=== PATIENT | female | born 1980 | race African-American/Black ===

== ENCOUNTER 2017-01-01 20:05 | Emergency (ER) | payer OTHER ==
[~2017-01-01] VITALS: Ht 162.6 cm; Wt 61.2 kg
[~2017-01-01 20:05] MED LIST: FLONASE120 SPRAY/ NAS; GABAPENTIN300 MG PO; MORPHINE SULFAT30 M5 PO; OXY IR5 MG PO; ROBAXIN 500MG500 MG PO; VALTREX1 GM PO; ZITHROMAX Z-PA250 M1 PO; ZOVIRAX800 MG PO
[2017-01-01 20:38] VITALS: BP 127/79
[2017-01-01] MEDS ORDERED: PERCOCET 5-3251 EACH PO (20:50)
[2017-01-01] MEDS ORDERED: AMOXICILLIN500 M3 PO (20:50)
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
== END 2017-01-01 21:02 ==
LOC: ERH 20:05
DX: K04.7 Periapical abscess without sinus (principal)

== ENCOUNTER 2017-01-11 11:06 | Emergency (ER) | payer OTHER ==
[~2017-01-11] VITALS: Ht 162.6 cm; Wt 61.2 kg
[~2017-01-11 11:06] MED LIST changes: +AMOXICILLIN500 M3 PO; +PERCOCET 5-3251 EACH PO
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
[2017-01-11 14:05] LABS: ABSOLUTE BASOPHIL COUNT 0 /CUMM (0.0-0.2); ABSOLUTE EOSINOPHIL COUNT 0.1 /CUMM (0.0-0.7); ABSOLUTE GRANULOCYTE CT 3.1 /CUMM (1.4-6.5); ABSOLUTE LYMPH COUNT 2.9 /CUMM (1.2-3.4); ABSOLUTE MONOCYTE COUNT 0.4 /CUMM (0.10-0.60); BASOPHIL % 0.4 % (0.0-2.0); EOSINOPHIL % 0.8 % (0-5); GRANULOCYTE % 47.4 % (42.2-75.2); HEMATOCRIT 32.6 % (37-47); MEAN CORPUSCULAR HGB CONC 32.5 G/DL (33.0-37.0); MEAN CORPUSCULAR VOLUME 95.4 FL (81.0-99.0); MEAN PLATELET VOLUME 7.7 FL (7.4-10.4); PLATELET COUNT 280 /CUMM (130-400); RBC DISTRIBUTION WIDTH 13.7 % (11.5-14.5); RED BLOOD CELL CT 3.41 /CUMM (4.20-5.40); WHITE BLOOD CELL COUNT 6.5 /CUMM (4.8-10.8)
--- NOTE | 2017-01-11 16:08 | CT SCAN REPORT ---
EXAMINATION: CT FACE/SINUS WITH IV CONTRAST CLINICAL INFORMATION: 36-year-old female with right-sided nostril and gum discharge, pressure sensation and fever. Evaluate for abscess. COMPARISON: None TECHNIQUE: Multidetector CT imaging examination of the facial bones was obtained with intravenous administration of 94 mL of Optiray 320 nonionic contrast material. No contrast reaction reported. Axial images are presented at 1.25 mm and 2.5 mm slice thickness. Coronal and sagittal reformatted images were generated and reviewed. DLP: 695 mGy-cm FINDINGS: There is periapical lucency around the root of the right maxillary central incisor with focal resorption of overlying anterior cortical bone. Within the soft tissues overlying the adjacent maxilla, there is a small, 0.7 x 0.8 cm peripherally enhancing abscess; this is located at the base of the right nostril. There is minimal mucosal thickening of the inferior right maxillary sinuses. Otherwise, the ethmoid, maxillary and sphenoid sinuses are clear. The ostiomeatal units are patent. There is developmental lack of pneumatization of the frontal sinuses. The nasal cavity and nasopharynx are unremarkable. The orbital rims and jo, including orbital floors and lamina papyracea, are intact. The globes, extraocular muscles and retrobulbar fat planes are normal. The mandible, temporomandibular joints, zygomatic arches, pterygoid plates and nasal bones are normal. Skull base is intact and the mastoid air cells and middle ear cavities are clear. The visualized intracranial structures are normal. No pathologic sized lymph nodes within the visualized neck. There is a 1.2 cm mixed cystic-solid nodule within the right thyroid lobe. A 0.8 cm nodule is present within the right lobe on the neck CT of 09/26/2012. IMPRESSION: 1. 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 2. 1.2 cm mixed cystic and solid nodule in the right thyroid lobe.
[2017-01-11 16:34] VITALS: BP 109/59
[2017-01-11] MEDS ORDERED: MEDROL4 M2 PO (16:35)
[2017-01-11] MEDS ORDERED: DOXYCYCLINE HY100 M2 PO (16:35)
== END 2017-01-11 16:45 ==
LOC: ERH 11:06
PROVIDERS: Physician Assistant Medical
DX: J32.9 Chronic sinusitis, unspecified (principal); K04.7 Periapical abscess without sinus; E04.1 Nontoxic single thyroid nodule; Z72.0 Tobacco use
CPT/HCPCS: 96374; 96375; J1885; J2930

== ENCOUNTER 2018-02-23 17:23 | Emergency (ER) | payer OTHER ==
[~2018-02-23] VITALS: Ht 162.6 cm; Wt 52.2 kg
[~2018-02-23 17:23] MED LIST changes: +DOXYCYCLINE HY100 M2 PO; +MEDROL4 M2 PO
[2018-02-23 18:16] VITALS: BP 124/80
[2018-02-23 19:10] LABS: ABSOLUTE BASOPHIL COUNT 0 /CUMM (0.0-0.2); ABSOLUTE EOSINOPHIL COUNT 0.1 /CUMM (0.0-0.7); ABSOLUTE GRANULOCYTE CT 1.6 /CUMM (1.4-6.5); ABSOLUTE LYMPH COUNT 3.2 /CUMM (1.2-3.4); ABSOLUTE MONOCYTE COUNT 0.2 /CUMM (0.10-0.60); BASOPHIL % 0.1 % (0.0-2.0); EOSINOPHIL % 1.8 % (0-5); GRANULOCYTE % 31.1 % (42.2-75.2); HEMATOCRIT 33.3 % (37-47); MEAN CORPUSCULAR HGB 30.8 PG (27.0-31.0); MEAN CORPUSCULAR VOLUME 93.4 FL (81.0-99.0); MEAN PLATELET VOLUME 8.2 FL (7.4-10.4); PLATELET COUNT 256 /CUMM (130-400); RBC DISTRIBUTION WIDTH 13.7 % (11.5-14.5); RED BLOOD CELL CT 3.57 /CUMM (4.20-5.40); WHITE BLOOD CELL COUNT 5.1 /CUMM (4.8-10.8)
== END 2018-02-23 20:35 | disposition admitted as inpatient to this hospital (09) ==
LOC: ERH 17:23
PROVIDERS: Physician Assistant Medical
DX: R10.32 Left lower quadrant pain (principal)
CPT/HCPCS: 81001; 99281